=== PATIENT | female | born 1940 | race Caucasian/White ===

== ENCOUNTER → 2016-07-11 | Outpatient (CLI) | payer OTHER | LOC: FCPNEURO 21:00 | PROVIDERS: ATTEND Psychiatry & Neurology Sleep Medicine | DX: G47.33 Obstructive sleep apnea (adult) (pediatric) (principal); G47.31 Primary central sleep apnea ==

== ENCOUNTER → 2016-10-07 | Outpatient (CLI) | payer OTHER | LOC: FIMAGING 13:05 | PROVIDERS: ATTEND Family Medicine | DX: M79.671 Pain in right foot (principal); M19.071 Primary osteoarthritis, right ankle and foot; Z89.421 Acquired absence of other right toe(s); Z98.1 Arthrodesis status; L40.50 Arthropathic psoriasis, unspecified; M54.6 Pain in thoracic spine; Z79.899 Other long term (current) drug therapy; Z87.440 Personal history of urinary (tract) infections ==

== ENCOUNTER → 2016-10-09 | Outpatient (CLI) | payer OTHER | LOC: FCPNEURO 21:00 | PROVIDERS: ATTEND Psychiatry & Neurology Sleep Medicine | DX: G47.39 Other sleep apnea (principal); G47.36 Sleep related hypoventilation in conditions classified elsewhere ==

== ENCOUNTER 2016-11-15 22:02 | Emergency (ER) | payer OTHER ==
[2016-11-15 22:28] VITALS: TEMP 98.6
--- NOTE | 2016-11-15 22:32 | EDPHY ---
H & P Stated Complaint: pt tripped and fell wednesday, hit her l hand on ground HPI/ROS: HPI CHIEF COMPLAINT: Trip and fall, left arm pain left hand pain and swelling, left knee pain. HISTORY OF PRESENT ILLNESS: This patient very pleasant 76-year-old female, significant past medical history for hypertension, psoriatic arthritis, not on any anticoagulation, she presents emergency room after she was in [facility] she was on a trail on Wednesday she fell on outstretched left hand. Since then she has had swelling and pain to her left wrist and left hand. Also pain in her left knee. She sustained a skin tear to left knee. She does tell me tetanus shot is up-to-date. She presents emergency room with worsening left hand and arm swelling. Also has pain. She did take tramadol prior to arrival which is under pain she declined any further pain medicine here in emergency room. Her injury happened on Wednesday. She has not seek any medical attention. She did ice her arm elevated. Past Medical History: Hypertension, psoriatic arthritis Past Surgical History: Multiple orthopedic surgeries including hip, shoulder, left knee Social History: Lives in [place], denies daily use of drugs alcohol tobacco products Family History: Noncontributory ROS REVIEW OF SYSTEMS: A comprehensive 10 point review of systems is otherwise negative aside from elements mentioned in the history of present illness. Exam Constitutional triage nursing summary reviewed, vital signs reviewed, awake/ alert. Eyes normal conjunctivae and sclera, EOMI, PERRLA. HENT normal inspection, atraumatic, moist mucus membranes, no epistaxis, neck supple/ no meningismus, no raccoon eyes. Respiratory clear to auscultation bilaterally, normal breath sounds, no respiratory distress, no wheezing. Cardiovascular rate normal, regular rhythm, no murmur, no edema, distal pulses normal. Gastrointestinal soft, non-tender, no rebound, no guarding, normal bowel sounds, no distension, no pulsatile mass. Genitourinary no CVA tenderness. Musculoskeletal Left Upper Extremity: Neurovascularly intact. Good radial pulse, warm extremity cap refill intact less than 2 seconds, sensation intact, however noted left hand and wrist and forearm is very swollen. It is soft. Compartments are soft. Minimal tenderness on exam. There is noted a ring on the ring finger that needs to be removed. She is okay with this. Left lower extremity specifically knee: Skin tear anterior knee. Full range of motion all scar from knee replacement. Mild swelling. Ecchymosis down the anterior left tib fib region. But no pain. no midline vertebral tenderness, full range of motion, no calf swelling, no tenderness of extremities, no meningismus, good pulses, neurovascularly intact. Skin pink, warm, & dry, no rash, skin atraumatic. Neurologic awake, alert and oriented x 3, AAOx3, moves all 4 extremities equally, motor intact, sensory intact, CN II-XII intact, normal cerebellar, normal vision, normal speech. Psychiatric normal mood/affect. Heme/Lymph/Immune no lymphadenopathy. Differential Diagnosis: Includes but is not limited to in a particular order multiple contusions, soft tissue injury, ecchymosis, wrist fracture, hand fracture, knee contusion, knee sprain, knee fracture, soft tissue injury, deep skin abrasion. Medical Decision Making: Plan for this patient declined any further pain medicine here in emergency room. 1. we will need to remove her ring. 2. she will need x-rays of the left wrist, left hand, and left knee. Re-evaluation: ED x-ray left knee: Osteoarthritis present. Total knee hardware present. No significant malalignment. Hardware appears intact and in place. ED x-ray left wrist and left hand: Shows a comminuted distal radius fracture in multiple pieces. Distal ulnar fracture. Possible triquetrum fracture. 2336: I will consult Orthopedics Dr. Batista. The patient be placed in sugar- tong splint. Orthopedic referral given. Recommend keeping arm elevated. Viper or tramadol for pain control. Splint. Patient understands return emergency room if she has any worsening symptoms including worsening pain, swelling numbness or tingling. [id number];' I did re-evaluate this patient after splint placement she has a sugar- tong splint in place. She is neurovascular intact at the splint is appropriately placed. She is happy with splint placement I did go over x-rays with her I did print her x-ray report for. She is requesting a disc. She understands she is to follow up with Dr. Batista this week call their for an appointment. She understands return emergency room if she has any worsening symptoms includes swelling, pain, numbness or tingling questions or concerns about her splint. Source: Patient - Personal History Current Tetanus Diphtheria and Acellular Pertussis (TDAP): Yes - Medical/Surgical History Hx Asthma: No Hx Chronic Respiratory Disease: No Hx Diabetes: No Hx Cardiac Disease: No Hx Renal Disease: No Hx Cirrhosis: No Hx Alcoholism: No Hx HIV/AIDS: No Hx Splenectomy or Spleen Trauma: No Other PMH: htn/scoriatic arthritis/spinal fusion/neuropathy/sinus inf/surgery/ - Social History Smoking Status: Former smoker Constitutional: Initial Vital Signs Temperature (C) 37 C 11/15/16 22:25 Heart Rate 81 11/15/16 22:25 Respiratory Rate 22 H 11/15/16 22:25 Blood Pressure 124/67 H 11/15/16 22:25 O2 Sat (%) 94 11/15/16 22:25 O2 Delivery Mode Room Air Allergies/Adverse Reactions: codeine Allergy (Verified 04/14/14 12:29) Sulfa (Sulfonamide Antibiotics) Allergy (Verified 04/14/14 12:29) Home Medications: Medication Instructions Recorded Augmentin 875 MG TAB (RX) 04/14/14 CIMZIA 04/14/14 Cymbalta 04/14/14 Ducoxelyon 04/14/14 GABAPENTIN 04/14/14 LYRICA 04/14/14 Nexium 04/14/14 traMADOL 04/14/14 Medical Decision Making - Diagnostics Imaging Results: Imaging Impressions Hand X-Ray 11/15/16 22:45 Impression: 1. Osteoarthritis worse in the second and third proximal interphalangeal joints. 2. Impacted comminuted intra-articular distal left radius fracture. 3. Possible triquetral and ulnar styloid fractures. Knee X-Ray 11/15/16 22:45 Impression: 1. No definite acute fracture of the left knee. 2. Left total knee arthroplasty with lucency along the medial femoral condyle which may represent incidental loosening. Wrist X-Ray 11/15/16 22:45 Impression: 1. Impacted intra-articular comminuted distal left radius fracture. 2. Suspect ulnar styloid fracture. 3. Possible triquetral fracture. Departure - Departure Disposition: Home, Routine, Self-Care Clinical Impression: Wrist fracture Qualifiers: Encounter type: initial encounter Fracture type: closed Laterality: left Qualified Code(s): S62.102A - Fracture of unspecified carpal bone, left wrist, initial encounter for closed fracture Condition: Good Instructions: Wrist Fracture in Adults (ED) Additional Instructions: 1. Please follow up with Hand surgery. Please call their for an appointment. 2. Return emergency room if you have worsening pain, swelling, numbness or tingling. 3. Stay in your splint. 4. Return emergency room immediately if he develops worsening swelling, worsening pain. Or if you have any questions or concerns. 5. You need to ice your arm. Referrals: Chiquis Pizarro MD [Primary Care Provider] - As per Instructions Kenna Batista MD [Medical Doctor] - As per Instructions
[2016-11-16 00:48] VITALS: BP 127/71; PULSE 83; RESP 14; O2SAT 95
== END 2016-11-16 00:40 | disposition home or self-care (01) ==
LOC: EEVIPCON 22:02
PROC: 2W3DX1Z Immobilization of Left Lower Arm using Splint (ICD-10-PCS; principal; 2016-11-15)
DX: S52.572A Other intraarticular fracture of lower end of left radius, initial encounter for closed fracture (principal); I10 Essential (primary) hypertension; Z87.891 Personal history of nicotine dependence; W01.10XA Fall on same level from slipping, tripping and stumbling with subsequent striking against unspecified object, initial encounter

== ENCOUNTER 2016-11-19 10:07 | Emergency (ER) | payer OTHER ==
[2016-11-19 10:12] VITALS: RESP 16
[2016-11-19] MEDS ORDERED: IOPAMIDOL (ISOVUE 370) 100 ML BTL IV ONE (10:53)
--- NOTE | 2016-11-19 12:16 | EDPHY ---
H & P Stated Complaint: out of focus since fall Time Seen by Provider: 11/19/16 10:42 HPI/ROS: CHIEF COMPLAINT: Mild confusion since mechanical fall, slight right anterior neck pain HISTORY OF PRESENT ILLNESS: The patient presents to the ED with complaints of mild confusion and slight right anterior neck pain at the area of her mandible since a mechanical fall 5 days ago. The patient was seen in the ED initially had no neurologic complaints. She was diagnosed with an upper extremity fracture and placed in a sling. The patient denies being anticoagulated. The patient does complain of a mild headache. She denies any focal numbness or weakness. The patient denies any additional traumatic injury. REVIEW OF SYSTEMS: A comprehensive 10 point review of systems is otherwise negative aside from elements mentioned in the history of present illness. Source: Patient Exam Limitations: No limitations - Personal History Current Tetanus/Diphtheria Vaccine: Yes Current Tetanus Diphtheria and Acellular Pertussis (TDAP): Yes - Medical/Surgical History Hx Asthma: No Hx Chronic Respiratory Disease: No Hx Diabetes: No Hx Cardiac Disease: No Hx Renal Disease: No Hx Cirrhosis: No Hx Alcoholism: No Hx HIV/AIDS: No Hx Splenectomy or Spleen Trauma: No Other PMH: htn/scoriatic arthritis/spinal fusion/neuropathy/sinus inf/surgery/ - Social History Smoking Status: Former smoker - Physical Exam Exam: General Appearance: Alert, no distress Head: Atraumatic Eyes: Pupils equal, round, reactive ENT, Mouth: No hemotympanum, no oral trauma Neck: Nontender, trachea midline, mild tenderness to palpation over right anterior neck in the area of carotid artery Respiratory: No chest wall tender, subcutaneous air, lungs clear bilaterally Cardiovascular: Regular rate and rhythm Abdomen: Abdomen is soft and nontender, pelvis stable Skin: No lacerations, No abrasion Back: No midline T/L/S pain Extremities: Splint noted to the left upper extremity, neurologically intact Neurological: A&Ox3, normal motor function, normal sensory exam Constitutional: Initial Vital Signs Temperature (C) 37.3 C 11/19/16 10:10 Heart Rate 84 11/19/16 10:10 Respiratory Rate 16 11/19/16 10:10 Blood Pressure 129/77 H 11/19/16 10:10 O2 Sat (%) 97 11/19/16 10:10 O2 Delivery Mode Room Air Allergies/Adverse Reactions: codeine Allergy (Verified 04/14/14 12:29) Sulfa (Sulfonamide Antibiotics) Allergy (Verified 04/14/14 12:29) Home Medications: Medication Instructions Recorded Augmentin 875 MG TAB (RX) 04/14/14 CIMZIA 04/14/14 Cymbalta 04/14/14 Ducoxelyon 04/14/14 GABAPENTIN 04/14/14 LYRICA 04/14/14 Nexium 04/14/14 traMADOL 04/14/14 Medical Decision Making - Diagnostics Imaging Results: Imaging Impressions Head CT 11/19/16 10:43 Impression: 1. No acute intracranial findings. 2. Diffuse cerebral atrophy with periventricular and subcortical low attenuation consistent with chronic microvascular ischemic gliosis. 3. Left maxillary sinusitis. 4. Additional findings as above. Findings discussed with Dr. Tawanda Hull on 11/19/2016 at 11:40 a.m. Neck CTA 11/19/16 10:47 Impression: 1. No acute vascular findings. 2. Nonspecific mildly prominent left cervical lymph node, which could be reactive, but is slightly increased in size since 2016. Recommend follow-up CT soft tissue neck in 6 months. 3. Acute left maxillary sinusitis. 4. Degenerative change in the cervical spine as above, with mild spinal canal narrowing at C5-C6 and severe bilateral neural foraminal stenosis. 5. Additional findings as above. Stenoses are calculated using [place] Citizen Symptomatic Carotid Endarterectomy Trial (NASCET) criteria. Findings discussed with Dr. Tawanda Hull on 11/19/2016 at 11:40 a.m. ED Course/Re-evaluation: The patient presents to the ED with two complaints 1. Delayed headache and slight dizziness following a mechanical fall. 2. Some tenderness over her right carotid artery. Given her complaints of headache, fall a stat CT scan of the head without contrast and CT angiogram of the neck was ordered. Fortunately the results of this study demonstrate no evidence of intracranial hemorrhage or dissection. The patient is noted to be neurologically intact. She does have a small lymph node noted in her neck felt to be inconsequential to her presentation today. The patient will be instructed to take Tylenol and ibuprofen as needed for pain. She should return for any worsening neurologic symptoms or other concerns. Differential Diagnosis: Differential diagnosis considered includes intracranial hemorrhage, skull fracture, carotid artery dissection Departure - Departure Disposition: Home, Routine, Self-Care Clinical Impression: Headache, Neck pain Condition: Good Instructions: Chronic Post Traumatic Headache (ED) Additional Instructions: 1. Please take Tylenol and ibuprofen as needed for pain. 2. Please return to the ED for markedly worsening symptoms or other concerns. 3. Please follow up with the orthopedic surgeon you have been referred to as scheduled. 4. Your CT scan demonstrates no evidence of an acute injury. You do have a lymph node noted in your neck on your CT scan. This is likely insignificant. Our radiologist does recommend a repeat CT scan in 6 months for follow-up. Please discuss this with your primary care provider. Referrals: Chiquis Pizarro MD [Primary Care Provider] - As per Instructions
[2016-11-19 12:36] VITALS: BP 135/77; PULSE 77; TEMP 99.3; O2SAT 90
== END 2016-11-19 12:35 | disposition home or self-care (01) ==
DX: M54.2 Cervicalgia (principal); R51 Headache; I10 Essential (primary) hypertension; Z87.891 Personal history of nicotine dependence
CPT/HCPCS: 70450; 70498; 99285; Q9967

== ENCOUNTER 2016-11-27 05:47 | Day surgery (SDC) | payer OTHER ==
[2016-11-27] MEDS ORDERED: LIDOCAINE 1% 2 ML INJ ONE (06:10)
[2016-11-27] MEDS ORDERED: LR 1,000 ML IV ONE (06:52)
[2016-11-27] MEDS ORDERED: BUPIVACAINE 0.5% 30 ML SDV ONE (06:53)
[2016-11-27] MEDS ORDERED: MIDAZOLAM 2 MG/2 ML VIAL ONE (07:10)
[2016-11-27] MEDS ORDERED: SCOPOLAMINE HYDROBROMIDE 1.5 MG PATCH TD ONE (07:15)
[2016-11-27] MEDS ORDERED: LIDOCAINE 2% 5 ML SDV ONE (07:17)
[2016-11-27] MEDS ORDERED: fentaNYL 100 MCG/2 ML INJ ONE ×2 (07:18→09:06)
[2016-11-27] MEDS ORDERED: PROPOFOL 200 MG/20 ML VIAL ONE (07:18)
[2016-11-27] MEDS ORDERED: ROCURONIUM 50 MG/5 ML VIAL ONE (07:19)
[2016-11-27] MEDS ORDERED: PROPOFOL/EMULSION 500 MG/50 ML BOTTLE IV ONE (07:36)
[2016-11-27] MEDS ORDERED: ONDANSETRON 4 MG/2 ML VIAL ONE (08:28)
[2016-11-27] MEDS ORDERED: DEXAMETHASONE 4 MG/ML VIAL ONE (08:28)
[2016-11-27] MEDS ORDERED: SUGAMMADEX SODIUM 200 MG/2 ML VIAL IVP ONE (08:29)
[2016-11-27] MEDS ORDERED: HYDROmorphONE/DILAUDID 1 MG/ML SYR ONE (09:06)
--- NOTE | 2016-11-27 09:36 | GOP ---
[f rep st] OPERATIVE REPORT DATE OF OPERATION: 11/27/2016 SURGEON: Edison Mauro MD PREOPERATIVE DIAGNOSIS: Comminuted intraarticular left distal radius fracture. POSTOPERATIVE DIAGNOSIS: Comminuted intraarticular left distal radius fracture. PROCEDURE PERFORMED: Open reduction and internal fixation of comminuted left distal radius intraarticular fracture. FINDINGS: INDICATIONS: Significant displacement of the intraarticular fracture. DESCRIPTION OF PROCEDURE: Under general anesthesia, the patient's left arm was prepped and draped in the usual fashion; and under fluoroscopic visualization and longitudinal traction with the wrist traction tower, it was seen that the fracture could not be reduced into acceptable position. Traction tower was removed. The arm tourniquet was applied at 250 mmHg. 0.5% plain Marcaine was instilled at the operative area. An L-shaped incision was made obliquely down the forearm to the radial styloid area and then transversely at the flexion crease of the wrist. Skin and subcutaneous tissue were reflected. The interval between the flexor carpi radialis and palmaris longus was developed, the FPL tendon reflected radially and median nerve and finger flexors reflected ulnarly. The pronator quadratus was elevated from the distal radius. Callus formation and organized hematoma were removed from the fracture area, and the fracture was reduced into near anatomic position. Some fine-tuning bringing the radial styloid fragment into nice alignment produced a smooth articular surface. In that position, distal radial Synthes plate and screws were applied. This was 6 holes distally, 3 in the shaft. The position of the screws was checked. It was assured that screws were at the correct length and non intraarticular. The wound was irrigated profusely with body temperature saline. Video stills were taken in the operating room. Pronator quadratus was tacked back in place with 4-0 PDS, and fascia was closed with 4-0 PDS. Skin was closed with horizontal mattress sutures of 5-0 Prolene, and then a bulky soft pressure dressing was applied followed by palmar-base fiberglass splint held in place with an Baljit bandage. Tourniquet deflation resulted in immediate pinking of the digits. She was brought to the recovery area, where detailed instructions were given prior to discharge. A prescription for Phenergan, [place], and Keflex was provided. She had been given a gram of Ancef prior to commencement of surgery but was already on Augmentin prior to surgery. Followup arrangements in the office for about a week postop for dressing and suture removal and cast application for 4 additional weeks. /[id number]/MODL MTDD
[2016-11-27] MEDS ORDERED: HYDROCODONE/APAP 5/325 TAB ONE (10:28)
[2016-11-27] MEDS ORDERED: LR 1,000 ML IV SCH (10:30)
== END 2016-11-27 13:08 | disposition home or self-care (01) ==
LOC: FSGY 05:47
PROVIDERS: ATTEND Specialist
PROC: 0PSJ04Z Reposition Left Radius with Internal Fixation Device, Open Approach (ICD-10-PCS; principal; 2016-11-27 07:15)
DX: S52.572A Other intraarticular fracture of lower end of left radius, initial encounter for closed fracture (principal); W01.198A Fall on same level from slipping, tripping and stumbling with subsequent striking against other object, initial encounter; Y92.828 Other wilderness area as the place of occurrence of the external cause; Y93.01 Activity, walking, marching and hiking; Y99.8 Other external cause status
CPT/HCPCS: C1713; J1100; J1170; J2250; J2405; J2704; J3010

== ENCOUNTER → 2017-03-24 | Outpatient (CLI) | payer OTHER | LOC: BRMIMAGING 12:58 | PROVIDERS: ATTEND Physician Assistant Surgical | DX: Z12.31 Encounter for screening mammogram for malignant neoplasm of breast (principal); Z80.3 Family history of malignant neoplasm of breast | CPT/HCPCS: G0202 ==

== ENCOUNTER → 2017-04-07 | Outpatient (CLI) | payer OTHER | LOC: BRMIMAGING 11:04 | PROVIDERS: ATTEND Family Medicine | DX: E04.1 Nontoxic single thyroid nodule (principal); R73.9 Hyperglycemia, unspecified; R53.81 Other malaise; R31.9 Hematuria, unspecified ==

== ENCOUNTER → 2017-09-28 | Outpatient (CLI) | payer OTHER | LOC: FIMAGING 18:47 | PROVIDERS: ATTEND Internal Medicine Rheumatology | DX: M50.33 Other cervical disc degeneration, cervicothoracic region (principal); M50.222 Other cervical disc displacement at C5-C6 level; M53.83 Other specified dorsopathies, cervicothoracic region ==

== ENCOUNTER → 2018-01-19 | Outpatient (CLI) | payer OTHER | LOC: FIMAGING 15:40 | PROVIDERS: ATTEND Family Medicine | DX: S80.00XA Contusion of unspecified knee, initial encounter (principal); Z96.652 Presence of left artificial knee joint ==

== ENCOUNTER → 2018-08-05 | Outpatient (CLI) | payer OTHER | LOC: FIMAGING 15:27 | PROVIDERS: ATTEND Family Medicine | DX: J40 Bronchitis, not specified as acute or chronic (principal); I51.7 Cardiomegaly ==